=== PATIENT | female | born 1990 | race Caucasian/White ===

== ENCOUNTER 2016-07-31 18:02 | Emergency (ER) | payer MEDICAID ==
[~2016-07-31] VITALS: Ht 152.4 cm; Wt 80.0 kg
[~2016-07-31 18:02] MED LIST: AZIT250T94 PO; CYCL-319 PO; D-ME118S6 PO; HYDR-906 PO; IBUP-1542 PO; LORA-441 PO; MECL25TA2 PO; NAPR-260 PO; ONDA4TAB8 PO
[2016-07-31 18:45] VITALS: Ht 152.4 cm; Wt 80.0 kg
[2016-07-31] MEDS ORDERED: BEN25 PO (19:10)
--- NOTE | 2016-07-31 19:31 | ERD ---
ER Documentation Chief Complaint Date/Time DATE: 07/31/16 TIME: 19:28 Chief Complaint Rash on and off for one week HPI 25-year-old female presents in emergency department for complaints of rash in the upper extremities and facial area for 1 week on and off. Patient is complain of itching. Patient's family is also sick with the same symptoms. Patient did not take any limitation for rash. Patient does not have any lip swelling, tongue swelling or stridor. Patient denies any shortness of breath or wheezing. Patient denies any fever or chills. ROS All systems reviewed and are negative except as per history of present illness. Medications Home Meds Active Scripts Diphenhydramine Hcl* (Benadryl*) 25 Mg Cap, 25 MG PO Q6 Y for ITCHING/RASH, #30 TAB Prov:DAQUAN MACHADO NP 07/31/16 Hydrocodone/Acetaminophen ([place] 5-325 Tablet) 1 Each Tablet, 1 TAB PO Q6H Y for PAIN, #10 TAB Prov:RANDAL ZHENG 04/03/16 Ibuprofen* (Motrin*) 600 Mg Tab, 600 MG PO Q6, #30 TAB Prov:RANDAL ZHENG 04/03/16 Dextromethorphan Hb-Promethazine Hcl (Promethazine DM Syrup) 180 Ml Syrup, 5 ML PO Q6H Y for COUGH, #4 OZ Prov:RANDAL ZHENG 09/15/15 Azithromycin* (Zithromax*) 250 Mg Tablet, 250 MG PO .ZPACK DIRECTED, #6 TAB TAKE 500 MG (2 TABS) THE FIRST DAY THEN 250 MG (1 TAB) DAYS 2-5 Prov:RANDAL ZHENG 09/15/15 Lorazepam* (Ativan*) 0.5 Mg Tablet, 0.5 MG PO Q8H Y for ANXIETY, #6 TAB Prov:KARIME MCCULLOUGH DO 02/22/15 Meclizine Hcl* (Antivert*) 25 Mg Tablet, 25 MG PO Q6H Y for dizziness,vertigo, # 20 TAB Prov:KARIME MCCULLOUGH DO 02/22/15 Ondansetron Hcl* (Zofran*) 4 Mg Tablet, 4 MG PO Q8H Y for NAUSEA AND/OR VOMITING , #10 TAB Prov:KARIME MCCULLOUGH DO 02/22/15 Naproxen* (Naprosyn*) 500 Mg Tablet, 500 MG PO BID Y for PAIN AND/OR INFLAMMATION, #30 TAB Prov:JEANNETTEDAQUAN Fabian NP 10/10/14 Cyclobenzaprine Hcl* (Cyclobenzaprine Hcl*) 10 Mg Tablet, 5 MG PO TID, #20 TAB Prov:DAQUAN MACHADO NANCY Fabian BOND TRADER 10/10/14 Allergies Allergies: Coded Allergies: Penicillins (Verified Allergy, Unknown, 07/11/14) PMhx/Soc History of Surgery: Yes (tubal ligation) Anesthesia Reaction: No Hx Neurological Disorder: No Hx Respiratory Disorders: No Hx Cardiac Disorders: No Hx Psychiatric Problems: No Hx Miscellaneous Medical Probl: No Hx Alcohol Use: Yes (occassional) Hx Substance Use: No Hx Tobacco Use: No FmHx Family History: No coronary disease, No diabetes, No other Physical Exam Vitals Vital Signs Date Time Temp Pulse Resp B/P Pulse Ox O2 Delivery O2 Flow Rate FiO2 07/31/16 18:45 97.8 82 20 124/80 100 Physical Exam GENERAL: The patient is well developed and appropriate for usual state of health, in no apparent distress. CHEST: Clear to auscultation bilaterally. There are no rales, wheezes or rhonchi. HEART: Regular rate and rhythm. No murmurs, clicks, rubs or gallops. No S3 or S4. ABDOMEN: Soft, nontender and nondistended. Good bowel sounds. No rebound or guarding. No gross peritonitis. No gross organomegaly or masses. No Shah sign or McBurney point tenderness. BACK: No midline or flank tenderness. EXTREMITIES: Equal pulses bilaterally. There is no peripheral clubbing, cyanosis or edema. No focal swelling or erythema. Full range of motion. Grossly neurovascularly intact. NEURO: Alert and oriented. Cranial nerves 2-12 intact. Motor strength in all 4 extremities with 5/5 strength. Sensation grossly intact. Normal speech and gait. SKIN: Maculopapular rash noted in the facial area and upper extremities. There is no apparent ecchymosis or petechia. The skin is warm and dry. HEMATOLOGIC AND LYMPHATIC: There is no evidence of excessive bruising or lymphedema. No gross cervical, axillary, or inguinal lymphadenopathy. Procedures/MDM Medical decision making: Patient's rash all nonspecific, possible insect bite. No symptoms of any acute bacterial infection. No angioedema, no symptoms of any coagulopathies. Patient was given for Benadryl for itching, is advised to clean , patient is advised to follow with primary care doctor to 3 days for reevaluation of symptoms. Patient is advised to return to emergency department for any worsening symptoms. Departure Diagnosis: Primary Impression: Rash Condition: Stable Patient Instructions: Self-Care for Skin Rashes DAQUAN MACHADO NP Jul 31, 2016 19:31
== END 2016-07-31 19:20 | disposition home or self-care (01) ==
LOC: E/R 18:02
DX: R21 Rash and other nonspecific skin eruption (principal)
CPT/HCPCS: 99283

== ENCOUNTER 2016-08-18 00:06 | Emergency (ER) | payer MEDICAID ==
[~2016-08-18] VITALS: Ht 157.5 cm; Wt 80.0 kg
[~2016-08-18 00:06] MED LIST changes: +BEN25 PO; +IBUP800T25 PO; +ONDA4TAB14 PO; +TRAM50TA2 PO; +advil PO
[2016-08-18 00:12] VITALS: Ht 157.5 cm; Wt 80.0 kg
[2016-08-18] MEDS ORDERED: ACETAMINOPHEN 500 MG TAB PO STA (00:26)
--- NOTE | 2016-08-18 00:38 | ERD ---
ER Documentation Chief Complaint Date/Time DATE: 08/18/16 TIME: 00:37 Chief Complaint pt has pelvic pain, no period for 2 months bleeding today, r/o miscarriage HPI 25-year-old female presents here in emergency department for complaints of pelvic pain started today and vaginal spotting today. Patient has not had any menstruation for the last 2 months, LMP is 06/21/2016. Patient describes pelvic pain as cramping pain, 4/10 scale, accompanying the vaginal bleeding. Patient denies any flank pain. Patient denies any fever or chills. Patient did a test at home, was not clear per patient. ROS All systems reviewed and are negative except as per history of present illness. Medications Home Meds Active Scripts Ibuprofen* (Motrin*) 800 Mg Tab, 800 MG PO Q6H Y for PAIN AND OR ELEVATED TEMP, #30 TAB Prov:NDAIA APONTE MD 06/23/16 Tramadol HCl (Tramadol HCl) 50 Mg Tablet, 50 MG PO Q4 Y for PAIN, #20 TAB Prov:PETERSON KEARNEY PA-C 06/10/16 Ondansetron (Ondansetron Odt) 4 Mg Tab.rapdis, 4 MG PO Q6H Y for NAUSEA AND/OR VOMITING, #10 TAB Prov:PETERSON KEARNEY PA-C 06/10/16 Reported Medications Ibuprofen* (Motrin*) 800 Mg Tab, PO Q6 03/21/13 [advil] 200 MG No Conflict Check, PO Q8 03/21/13 Allergies Allergies: Coded Allergies: Penicillins (Verified Allergy, Severe, 12/30/13) PMhx/Soc Medical and Surgical Hx: pt denies Medical Hx, pt denies Surgical Hx History of Surgery: No Anesthesia Reaction: No Hx Neurological Disorder: No Hx Respiratory Disorders: No Hx Cardiac Disorders: No Hx Psychiatric Problems: No Hx Miscellaneous Medical Probl: No Hx Alcohol Use: No Hx Substance Use: No Hx Tobacco Use: No FmHx Family History: No coronary disease, No diabetes, No other Physical Exam Vitals Vital Signs Date Time Temp Pulse Resp B/P Pulse Ox O2 Delivery O2 Flow Rate FiO2 08/18/16 00:12 98.6 83 17 133/90 98 Physical Exam GENERAL: The patient is well developed and appropriate for usual state of health, in no apparent distress. CHEST: Clear to auscultation bilaterally. There are no rales, wheezes or rhonchi. HEART: Regular rate and rhythm. No murmurs, clicks, rubs or gallops. No S3 or S4. ABDOMEN: Soft, nontender and nondistended. Good bowel sounds. No rebound or guarding. No gross peritonitis. No gross organomegaly or masses. No Shah sign or McBurney point tenderness. BACK: No midline or flank tenderness. EXTREMITIES: Equal pulses bilaterally. There is no peripheral clubbing, cyanosis or edema. No focal swelling or erythema. Full range of motion. Grossly neurovascularly intact. NEURO: Alert and oriented. Cranial nerves 2-12 intact. Motor strength in all 4 extremities with 5/5 strength. Sensation grossly intact. Normal speech and gait. SKIN: There is no apparent rash or petechia. The skin is warm and dry. HEMATOLOGIC AND LYMPHATIC: There is no evidence of excessive bruising or lymphedema. No gross cervical, axillary, or inguinal lymphadenopathy. Result Diagram: 08/18/16 0033 08/18/16 0033 Results 24 hrs Laboratory Tests Test 08/18/16 00:33 White Blood Count 10.010^3/ul Red Blood Count 4.4410^6/ul Hemoglobin 13.6g/dl Hematocrit 40.5% Mean Corpuscular Volume 91.2fl Mean Corpuscular Hemoglobin 30.6pg Mean Corpuscular Hemoglobin Concent 33.6g/dl Red Cell Distribution Width 12.4% Platelet Count 85313^3/UL Mean Platelet Volume 11.4fl Neutrophils % 65.0% Lymphocytes % 26.7% Monocytes % 5.8% Eosinophils % 1.9% Basophils % 0.2% Nucleated Red Blood Cells % 0.0/100WBC Neutrophils # 6.510^3/ul Lymphocytes # 2.710^3/ul Monocytes # 0.610^3/ul Eosinophils # 0.210^3/ul Basophils # 0.010^3/ul Nucleated Red Blood Cells # 0.010^3/ul Urine Color LT. YELLOW Urine Clarity CLEAR Urine pH 7.0 Urine Specific [place] 1.020 Urine Ketones NEGATIVE Urine Nitrite NEGATIVE Urine Bilirubin NEGATIVE Urine Urobilinogen 0.2 E.U./dL Urine Leukocyte Esterase NEGATIVE Urine Hemoglobin NEGATIVE Urine Glucose NEGATIVE% Urine Total Protein NEGATIVE Sodium Level 139mmol/L Potassium Level 4.6mmol/L Chloride Level 106mmol/L Carbon Dioxide Level 27mmol/L Anion Gap 11 Blood Urea Nitrogen 12mg/dl Creatinine 0.70mg/dl Glucose Level 95mg/dl Calcium Level 9.1mg/dl Total Bilirubin 0.0mg/dl Direct Bilirubin 0.00mg/dl Indirect Bilirubin 0.0mg/dl Aspartate Amino Transf (AST/SGOT) 20IU/L Alanine Aminotransferase (ALT/SGPT) 27IU/L Alkaline Phosphatase 107IU/L Total Protein 7.8g/dl Albumin 4.0g/dl Globulin 3.80g/dl Albumin/Globulin Ratio 1.05 Beta HCG, Quantitative < 2.4mIU/ml Current Medications Medications (Trade) Dose Ordered Sig/Anjel Route PRN Reason Start Time Stop Time Status Last Admin Dose Admin Acetaminophen (Tylenol Tab) 500 mg ONCE STAT PO 08/18/16 00:26 08/18/16 00:27 DC 08/18/16 01:38 Patient was given medication for pain here in emergency department, after treatment, patient verbalized feeling much better. Patient's pain is improved. PROCEDURE: Pelvic ultrasound. CLINICAL INDICATION: Pelvic pain. TECHNIQUE: Multiple sonographic images of the pelvis were obtained utilizing a transabdominal and endovaginal technique. The images were reviewed on a PACS workstation. COMPARISON: None. FINDINGS: The uterus is visualized and measures 8.1 x 4.4 x 5.6 cm. No abnormal uterine mass is identified. The endometrial echo complex is homogeneous and measures 8.7 mm. There is no evidence for free fluid. The right ovary has a normal echotexture and measures 3.9 x 2.8 x 3.1 cm. The left ovary has a normal echotexture and measures 3.6 x 1.3 x 1.5 cm. There is normal flow to both ovaries. There is an anechoic cyst within the right ovary measuring 2.9 x 1.8 x 2.4 cm. No adnexal masses are identified. IMPRESSION: Right ovarian 2.9 cm cyst. Otherwise unremarkable pelvic ultrasound. .Alexis Monroe MD, MD Date Time Electronically viewed and signed by .Alexis Monroe MD, on 08/18/2016 02:06 .T/ CC: DAQUAN MACHADO NP Procedures/MDM Medical Decision Making: Patients vaginal bleeding is most likely consistent of possible resuming menstruation. Patient's pelvic pain most likely is from the ovarian cyst noted in the ultrasound.. Patient does not show any evidence of hypovolemic shock. Patients hemoglobin and hematocrit is stable. There is low suspicion for ectopic . BARI results show no but shows an ovarian cyst. BetaHCG Quantitative is very low, negative for . Low suspicion for ovarian torsion. There is no signs of symptoms of dehydration. There is low suspicion for sepsis. Patient appears well and is hemodynamically stable. Disposition: Home. Condition: Stable Scription: Ibuprofen, Etlan Instructions: Patient is advised to do bed rest, avoid heavy lifting, and avoid having sex until cleared by gynecology specialist.. Patient is advised that is symptoms are worst, severe bleeding, dizziness, severe abdominal pain, fever, worst signs and symptoms to return to the emergency department immediately. Departure Diagnosis: Primary Impression: Ovarian cyst Laterality: right Qualified Code: N83.201 - Cyst of right ovary Additional Impression: Vaginal bleeding Condition: Stable Patient Instructions: Dysfunctional Uterine Bleeding, Ovarian Cyst Additional Instructions: Patient is advised to do bed rest, avoid heavy lifting, and avoid having sex until cleared by gynecology specialist.. Patient is advised that is symptoms are worst, severe bleeding, dizziness, severe abdominal pain, fever, worst signs and symptoms to return to the emergency department immediately. DAQUAN MACHADO NP Aug 18, 2016 00:38
[2016-08-18 01:14] LABS: ADD SCAN DIFF NO
[2016-08-18 01:22] LABS: BASOPHILS % 0.2 % (0.0-2.0); EOSINOPHILS # 0.2 10^3/ul (0.0-0.5); EOSINOPHILS % 1.9 % (0.0-7.0); HEMATOCRIT 40.5 % (37.0-47.0); HEMOGLOBIN 13.6 g/dl (12.0-16.0); LYMPHOCYTES # 2.7 10^3/ul (0.8-2.9); LYMPHOCYTES % 26.7 % (15.0-51.0); MEAN CORPUSCULAR HEMOGLOBIN 30.6 pg (29.0-33.0); MEAN CORPUSCULAR HGB CONC 33.6 g/dl (32.0-37.0); MEAN CORPUSCULAR VOLUME 91.2 fl (82.0-101.0); MEAN PLATELET VOLUME 11.4 fl (7.4-10.4); MONOCYTE # 0.6 10^3/ul (0.3-0.9); MONOCYTES % 5.8 % (0.0-11.0); NEUTROPHIL # 6.5 10^3/ul (1.6-7.5); PLATELET COUNT 212 10^3/UL (140-415); RED BLOOD COUNT 4.44 10^6/ul (4.20-5.40); RED CELL DISTRIBUTION WIDTH 12.4 % (11.5-14.5)
[2016-08-18 01:31] LABS: ADD UMIC NO; URINE BILIRUBIN (Dip) NEGATIVE (NEGATIVE); URINE BLOOD (Dip) NEGATIVE (NEGATIVE); URINE COLOR LT. YELLOW (YELLOW); URINE GLUCOSE (Dip) NEGATIVE (NEGATIVE); URINE KETONES (Dip) NEGATIVE (NEGATIVE); URINE LEUKOCYTE ESTERASE (Dip) NEGATIVE (NEGATIVE); URINE NITRITE (Dip) NEGATIVE (NEGATIVE); URINE TOTAL PROTEIN (Dip) NEGATIVE (NEGATIVE); URINE UROBILINOGEN (Dip) 0.2 E.U./dL (0.1-1.0)
[2016-08-18 01:49] LABS: ALBUMIN/GLOBULIN RATIO 1.05; CALCIUM 9.1 mg/dl (8.4-10.2); CREATININE 0.7 mg/dl (0.44-1.00); POTASSIUM 4.6 mmol/L (3.5-5.1); TOTAL PROTEIN 7.8 g/dl (6.1-8.1)
--- NOTE | 2016-08-18 02:06 | RADRPT ---
PROCEDURE: Pelvic ultrasound. CLINICAL INDICATION: Pelvic pain. TECHNIQUE: Multiple sonographic images of the pelvis were obtained utilizing a transabdominal and endovaginal technique. The images were reviewed on a PACS workstation. COMPARISON: None. FINDINGS: The uterus is visualized and measures 8.1 x 4.4 x 5.6 cm. No abnormal uterine mass is identified. T he endometrial echo complex is homogeneous and measures 8.7 mm. There is no evidence for free fluid. The right ovary has a normal echotexture and measures 3.9 x 2. 8 x 3.1 cm. The left ovary has a normal echotexture and measures 3.6 x 1.3 x 1.5 cm. There is norm al flow to both ovaries. There is an anechoic cyst within the right ovary measuring 2.9 x 1.8 x 2.4 cm. No adnexal masses are identified. IMPRESSION: Right ovarian 2.9 cm cyst. Otherwise unremarkable pelvic ultrasound. .Alexis Monroe MD, MD Date Time Electronically viewed and signed by .Alexis Monroe MD, on 08/18/2016 02:06 .T/
[2016-08-18] MEDS ORDERED: HYDR-906 PO (02:19)
[2016-08-18] MEDS ORDERED: IBUP-1542 PO (02:19)
[2016-08-18 02:43] VITALS: BP 118/74; PULSE 74; RESP 16
== END 2016-08-18 02:45 | disposition home or self-care (01) ==
LOC: FTE 00:06 → MERGE 00:06 → FTE 02:45
DX: N83.201 Unspecified ovarian cyst, right side (principal); N93.9 Abnormal uterine and vaginal bleeding, unspecified
CPT/HCPCS: 76830; 76856; 80053; 81003; 84702; 85025; 86900; 86901; Z7610; 36415

== ENCOUNTER 2016-11-28 09:44 | Emergency (ER) | payer MEDICAID ==
[~2016-11-28] VITALS: Ht 162.6 cm; Wt 78.0 kg
[2016-11-28 09:48] VITALS: Ht 162.6 cm; Wt 78.0 kg
--- NOTE | 2016-11-28 10:31 | ERD ---
ER Documentation Chief Complaint Date/Time DATE: 11/28/16 TIME: 10:29 Chief Complaint VAG BLEED SINCE 0300 AM HPI This is a 26-year-old female presenting to the emergency department complaining of moderate to severe pelvic pain that started since 3:00 this morning. Patient states that her last menstrual period was 1 month ago, she states that she does have mild vaginal bleeding but it does not similar to her menstrual period. She states that the she usually does not get pain with her menstrual period and she is worried. Patient does admit to being sexually active however she does have contraceptives. Patient denies any fever, dysuria, dizziness. Denies any nausea, vomiting, diarrhea. She denies taking any medications for this ROS All systems reviewed and are negative except as per history of present illness. Medications Home Meds Active Scripts Ibuprofen* (Motrin*) 600 Mg Tab, 600 MG PO Q6H Y for PAIN AND OR ELEVATED TEMP, #30 TAB Prov:JERAMIE ENGLAND PA-C 11/28/16 Hydrocodone/Acetaminophen ([place] 5-325 Tablet) 1 Each Tablet, 1 TAB PO Q6H Y for SEVERE PAIN LEVEL 7-10, #20 TAB Prov:DAQUAN MACHADO NP 08/18/16 Ibuprofen* (Motrin*) 600 Mg Tab, 600 MG PO Q6H Y for PAIN AND OR ELEVATED TEMP, #30 TAB Prov:DAQUAN MACHADO NP 08/18/16 Diphenhydramine Hcl* (Benadryl*) 25 Mg Cap, 25 MG PO Q6 Y for ITCHING/RASH, #30 TAB Prov:DAQUAN MACHADO NP 07/31/16 Ibuprofen* (Motrin*) 800 Mg Tab, 800 MG PO Q6H Y for PAIN AND OR ELEVATED TEMP, #30 TAB Prov:NADIA APONTE MD 06/23/16 Tramadol HCl (Tramadol HCl) 50 Mg Tablet, 50 MG PO Q4 Y for PAIN, #20 TAB Prov:PETERSON KEARNEY PA-C 06/10/16 Ondansetron (Ondansetron Odt) 4 Mg Tab.rapdis, 4 MG PO Q6H Y for NAUSEA AND/OR VOMITING, #10 TAB Prov:PETERSON KEARNEY PA-C 06/10/16 Hydrocodone/Acetaminophen ([place] 5-325 Tablet) 1 Each Tablet, 1 TAB PO Q6H Y for PAIN, #10 TAB Prov:RANDAL ZHENG Fabian 04/03/16 Ibuprofen* (Motrin*) 600 Mg Tab, 600 MG PO Q6, #30 TAB Prov:RANDAL ZEHNG Fabian 04/03/16 Dextromethorphan Hb-Promethazine Hcl (Promethazine DM Syrup) 180 Ml Syrup, 5 ML PO Q6H Y for COUGH, #4 OZ Prov:RANDAL ZHENG Fabian 09/15/15 Azithromycin* (Zithromax*) 250 Mg Tablet, 250 MG PO .ZPACK DIRECTED, #6 TAB TAKE 500 MG (2 TABS) THE FIRST DAY THEN 250 MG (1 TAB) DAYS 2-5 Prov:MARCERANDAL REID Fabian 09/15/15 Lorazepam* (Ativan*) 0.5 Mg Tablet, 0.5 MG PO Q8H Y for ANXIETY, #6 TAB Prov[facility] 02/22/15 Meclizine Hcl* (Antivert*) 25 Mg Tablet, 25 MG PO Q6H Y for dizziness,vertigo, # 20 TAB [facility] 02/22/15 Ondansetron Hcl* (Zofran*) 4 Mg Tablet, 4 MG PO Q8H Y for NAUSEA AND/OR VOMITING , #10 TAB Prov:[facility] 02/22/15 Naproxen* (Naprosyn*) 500 Mg Tablet, 500 MG PO BID Y for PAIN AND/OR INFLAMMATION, #30 TAB Prov:DAQUAN MACHADO NP 10/10/14 Cyclobenzaprine Hcl* (Cyclobenzaprine Hcl*) 10 Mg Tablet, 5 MG PO TID, #20 TAB Prov:DAQUAN MACHADO NP 10/10/14 Reported Medications Ibuprofen* (Motrin*) 800 Mg Tab, PO Q6 03/21/13 [advil] 200 MG No Conflict Check, PO Q8 03/21/13 Allergies Allergies: Coded Allergies: Penicillins (Verified Allergy, Unknown, 07/11/14) PMhx/Soc History of Surgery: No Anesthesia Reaction: No Hx Neurological Disorder: No Hx Respiratory Disorders: No Hx Cardiac Disorders: No Hx Psychiatric Problems: No Hx Miscellaneous Medical Probl: No Hx Alcohol Use: No Hx Substance Use: No Hx Tobacco Use: No Smoking Status: Never smoker Physical Exam Vitals Vital Signs Date Time Temp Pulse Resp B/P Pulse Ox O2 Delivery O2 Flow Rate FiO2 11/28/16 09:48 98.1 86 16 115/68 98 Physical Exam GENERAL: well-developed/well-nourished, in no apparent distress, non-toxic appearing HENT: NC/AT, moist mucous membranes EYES: Conjunctiva normal NECK: Supple, no lymphadenopathy PULM: CTA bilaterally, no rales, rhonchi, or wheezing heard CV: Normal S1S2, RRR, good capillary refill GI: Soft, non-distended, tender to palpation suprapubic, bilateral pelvic pain Normal bowel sounds, no masses or organomegaly felt on exam No gross peritonitis, no bruits Negative Rovsing, negative Shah, negative McBurney's point, Negative CVAT BACK: No masses EXT: No clubbing, cyanosis, or edema NEURO: Alert and Orientated SKIN: Intact, normal turgor PSYCH: Normal mood and mentation Results 24 hrs Laboratory Tests Test 11/28/16 10:56 Urine Color YELLOW Urine Clarity SLIGHTLY CLOUDY Urine pH 5.0 Urine Specific [place] 1.021 Urine Ketones NEGATIVEmg/dL Urine Nitrite NEGATIVEmg/dL Urine Bilirubin NEGATIVEmg/dL Urine Urobilinogen NEGATIVEmg/dL Urine Leukocyte Esterase NEGATIVELeu/ul Urine Microscopic RBC 22/HPF Urine Microscopic WBC 2/HPF Urine Squamous Epithelial Cells FEW/HPF Urine Bacteria FEW/HPF Urine Mucus FEW/HPF Urine Hemoglobin 3+mg/dL Urine Glucose NEGATIVEmg/dL Urine Total Protein NEGATIVEmg/dl Procedures/MDM This is a 26-year-old female presenting to the emergency department complaining of moderate to severe pelvic pain and vaginal bleeding, likely related to onset of her menstrual period. Patient states that she usually does not get pelvic pain with menstrual periods however I discussed with her that diet and stress and other factors may change that. There was no evidence of torsion, urinary tract infection. Patient appears hemodynamic stable to be discharged home with strict precautions to return to the emergency department for any worsening signs or symptoms. Discussed the follow-up with an SOFTWARE PACKAGING ENGINEER. She understands and agrees with this plan. Pelvic ultrasound: 1. Unremarkable pelvic ultrasound. 2. Normal blood flow to both ovaries. No evidence of torsion. Departure Diagnosis: Primary Impression: Dysmenorrhea Condition: Stable JERAMIE ENGLAND PA-C Nov 28, 2016 10:31
--- NOTE | 2016-11-28 10:45 | RADRPT ---
PROCEDURE: US Pelvis. CLINICAL INDICATION: Pelvic pain. TECHNIQUE: Multiple sonographic images of the pelvis were obtained utilizing a transabdominal and endovaginal technique. The images were reviewed on a PACS workstation. COMPARISON: None available. FINDINGS: The uterus is visualized and measures 8.2 x 4.1 x 4.0 cm. The endometrial echo complex is normal and measures 6.0 mm. There is no evidence for free fluid. The right ovary has a normal echotexture and measures 4.6 x 1.5 x 2.3 cm. The left ovary has a normal echotexture and measures 4.1 x 1.2 x 2.1 c m. There is normal Doppler flow seen to both kidneys. No adnexal masses are noted. IMPRESSION: 1. Unremarkable pelvic ultrasound. 2. Normal blood flow to both ovaries. No evidence of torsion. RPTAT: [facility] Physician Shauna Date Time Electronically viewed and signed by Physician Shauna on 11/28/2016 10:45 /
[2016-11-28] MEDS ORDERED: IBUP-1542 PO (10:59)
[2016-11-28 11:15] LABS: ADD UMIC YES; UR ASCORBIC ACID NEGATIVE (NEGATIVE); UR BACTERIA FEW /HPF (NONE SEEN); UR BILIRUBIN (Dip) NEGATIVE (NEGATIVE); UR BLOOD (Dip) 3+ mg/dL (NEGATIVE); UR CLARITY SLIGHTLY CLOUDY (CLEAR); UR COLOR YELLOW (YELLOW); UR GLUCOSE (Dip) NEGATIVE (NEGATIVE); UR KETONES (Dip) NEGATIVE (NEGATIVE); UR LEUKOCYTE ESTERASE (Dip) NEGATIVE Leu/ul (NEGATIVE); UR MUCUS FEW /HPF (NONE SEEN); UR NITRITE (Dip) NEGATIVE (NEGATIVE); UR RBC 22 /HPF (0-5); UR SPECIFIC GRAVITY (Dip) 1.021 (1.003-1.030); UR SQUAMOUS EPITHELIAL CELL FEW /HPF (FEW); UR TOTAL PROTEIN (Dip) NEGATIVE (NEGATIVE); UR UROBILINOGEN (Dip) NEGATIVE (NEGATIVE)
[2016-11-28] MEDS ORDERED: KETOROLAC 60 MG INJ IM STA (11:45)
== END 2016-11-28 11:57 | disposition home or self-care (01) ==
LOC: FTE 09:44
DX: N94.6 Dysmenorrhea, unspecified (principal); R10.2 Pelvic and perineal pain
CPT/HCPCS: 76830; 76856; 81001; 96372; J1885; Z7502

== ENCOUNTER 2017-07-26 00:40 | Emergency (ER) | END 2017-07-26 04:32 | disposition left against medical advice (07) ==

== ENCOUNTER 2017-12-19 10:15 | Emergency (ER) | END 2017-12-19 10:49 | disposition home or self-care (01) ==